=== PATIENT | male | born 1975 | race Caucasian/White ===

== ENCOUNTER 2018-11-17 13:30 | Emergency (ER) | payer SELFPAY ==
--- NOTE | 2018-11-17 13:45 | ED.PDOC ---
History of Present Illness - General Chief Complaint: Dental/Mouth Time Seen by Provider: 11/17/18 13:42 Source: patient Exam Limitations: no limitations - History of Present Illness Initial Comments: C/O PAIN SWELLING TO R LOWER MANDIBLE. 3 DAYS DURATION. Severity: moderate Worsening Factors: nothing Allergies/Adverse Reactions: Allergies NO KNOWN ALLERGY Allergy (Verified 11/17/18 13:52) Home Medications: Ambulatory Orders Amoxicillin [Amoxil] 500 mg PO TID #30 cap 11/17/18 Review of Systems - Review of Systems Constitutional: Denies: chills, fever EENTM: States: mouth pain, mouth swelling Respiratory: Denies: short of breath Neurological: States: no symptoms reported Past Medical History (General) - Patient Medical History Hx Hypertension: Yes - NON COMPLIANT Physical Exam - Physical Exam General Appearance: Alert, No apparent distress Eye Exam: bilateral normal Ears, Nose, Throat: hearing grossly normal, normal ENT inspection, other - TM'S NL. SWELLING TO LOWER MANDIBLE. POOR DENTITION. MULTIPLE DENTAL CARIES. SWELLING TO R LOWER GINGIVA, TTP, NO FLUCTUENCE. Neck: non-tender, full range of motion, supple Extremity: normal range of motion, non-tender, normal inspection Neurologic: alert, normal mood/affect Skin Exam: normal color, warm/dry Lymphatic: no adenopathy Progress - Progress Progress: 11/17/18 13:56 PT'S BP ELEVATED. STATES HE TAKES IT REGULARLY AT HOME AND NORMALLY RUNS 120'S/70'S. CURRENTLY ASYMPTOMATIC. Departure - Departure Clinical Impression: Facial pain, Dental caries Time of Disposition: 13:53 Disposition: Discharge to Home or Self Care Condition: Good Departure Forms: ED Discharge - Pt. Copy, Patient Portal Self Enrollment Instructions: DI for Mouth Pain, DI for Dental Pain Prescriptions: Amoxicillin [Amoxil] 500 mg PO TID #30 cap Home Medications: Ambulatory Orders Amoxicillin [Amoxil] 500 mg PO TID #30 cap 11/17/18
[2018-11-17 13:51] VITALS: BP 141/106; TEMP 98.7; O2SAT 94
== END 2018-11-17 14:17 | disposition home or self-care (01) ==
LOC: ER 13:30
DX: K02.9 Dental caries, unspecified (principal); I10 Essential (primary) hypertension; Z91.14 Patient's other noncompliance with medication regimen